=== PATIENT | male | born 1995 | race Caucasian/White ===

== ENCOUNTER 2018-03-02 13:49 | Emergency (ER) | payer OTHER, BC ==
[~2018-03-02] VITALS: Ht 167.6 cm; Wt 95.0 kg
[~2018-03-02 13:49] MED LIST: ADDE5XR
[2018-03-02 13:57] VITALS: BP 143/64; PULSE 102; RESP 20; TEMP 97.5; O2SAT 97
--- NOTE | 2018-03-02 16:39 | RADRPT ---
EXAM DATE: 03/02/2018 4:13 PM EDT AGE/SEX: 22 years / Male INDICATIONS: Pain from fall backwards onto hand, fourth metatarsal region. CLINICAL DATA: This is the patient's initial encounter. Patient reports that signs and symptoms have been present for 1 day and indicates a pain score of 5/10. MEDICAL/SURGICAL HISTORY: None. None. COMPARISON: No prior exams available for comparison. FINDINGS: There is a mildly angulated fracture of the distal fifth metacarpal. No dislocation. Also a mildly di splaced fracture proximal fifth metacarpal at the carpometacarpal joint. CONCLUSION: Mildly displaced fractures of the proximal and distal right fifth metacarpal. Electronically signed by: David Elias MD 03/02/2018 4:38 PM EDT
--- NOTE | 2018-03-02 16:55 | PD ---
HPI Chief Complaint: Injury Time Seen by Provider: 15:39 Travel History International Travel<30 days: No Contact w/Intl Traveler<30days: No Traveled to known affect area: No History of Present Illness HPI 22-year-old male presents emergency department with injury to the right hand. Patient was working out at the gym, when he fell off the treadmill backwards landing on his right hand that was balled and assist. This happened 3 days ago. He continues to have pain and swelling to the right hand and difficulty making a fist. Pain is 7 out of 10. Patient denies numbness or tingling. Pain is localized to the right lateral hand. He has no pain to the wrist, elbow, or shoulder. He denies any other injury. He has no known drug allergies. PFSH Past Medical History ADHD: Yes Diminished Hearing: No Immunizations Current: Yes Past Surgical History Tympanostomy Tube: Yes Social History Alcohol Use: No Tobacco Use: No Substance Use: No Allergies-Medications (Allergen,Severity, Reaction): Coded Allergies: No Known Allergies (Verified , 01/26/10) Reported Meds & Prescriptions Reported Meds & Active Scripts Active Reported Adderall Xr (Amphetamine/Dextroamphetamine) 5 Mg Cap 0 UNKNOWN DOSE Review of Systems Except as stated in HPI: all other systems reviewed are Neg General / Constitutional: No: Fever Eyes: No: Visual changes HENT: No: Headaches Cardiovascular: No: Chest Pain or Discomfort Respiratory: No: Shortness of Breath Gastrointestinal: No: Abdominal Pain Genitourinary: No: Dysuria Musculoskeletal: Positive: Arthralgias, Limited ROM, Pain Skin: No Rash Neurologic: No: Weakness Psychiatric: No: Depression Endocrine: No: Polydipsia Hematologic/Lymphatic: No: Easy Bruising Physical Exam Narrative GENERAL: Patient appears in mild distress. SKIN: Warm and dry. Normal color. Normal turgor. Patient has bruising to the dorsal right hand. This area is swollen as well. HEAD: Atraumatic. Normocephalic. EYES: Pupils equal and round. No scleral icterus. No injection or drainage. ENT: No nasal bleeding or discharge. Mucous membranes pink and moist. NECK: Trachea midline. No JVD. CARDIOVASCULAR: Regular rate and rhythm. RESPIRATORY: No accessory muscle use. Clear to auscultation. Breath sounds equal bilaterally. GASTROINTESTINAL: Abdomen soft, non-tender, nondistended. Hepatic and splenic margins not palpable. MUSCULOSKELETAL: Extremities without clubbing, cyanosis, or edema. No obvious deformities. Patient has no shortening of the fingers or knuckles. He has swelling and tenderness over the dorsal lateral right hand consistent with distal metacarpal fracture. 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 Right wrist is unremarkable. Rest of exam is unremarkable. NEUROLOGICAL: Awake and alert. No obvious cranial nerve deficits. Motor grossly within normal limits. Five out of 5 muscle strength in the arms and legs. Normal speech. PSYCHIATRIC: Appropriate mood and affect; insight and judgment normal. Data Data Last Documented VS Vital Signs Date Time Temp Pulse Resp B/P (MAP) Pulse Ox O2 Delivery O2 Flow Rate FiO2 03/02/18 13:57 97.5 102 20 143/64 (90) 97 Orders Orders Hand, Complete ([id number]) (03/02/18 15:41) Splinting (03/02/18 ) MDM Medical Decision Making Medical Screen Exam Complete: Yes Emergency Medical Condition: Yes Differential Diagnosis Accidental fall. Right hand contusion. Possible fracture Narrative Course X-rays of the right hand are obtained. Patient is noted to have a slightly angulated distal fifth metacarpal fracture. Patient will be placed in an ulnar gutter splint. The splint should remain in place at all times. Patient can take Tylenol as needed for pain Patient should ice the area frequently. Patient is to follow-up with Dr. Anaya in the next 1-2 weeks. Diagnosis Primary Impression: Fracture of metacarpal of right hand, closed Qualified Codes: S62.336A - Displaced fracture of neck of fifth metacarpal bone, right hand, initial encounter for closed fracture Referrals: Deena Anaya MD 2 weeks Patient Instructions: General Instructions Additional Instructions: Patient is noted to have a slightly angulated distal fifth metacarpal fracture. Patient will be placed in an ulnar gutter splint. The splint should remain in place at all times. Patient can take Tylenol as needed for pain Patient should ice the area frequently. Patient is to follow-up with Dr. Anaya in the next 1-2 weeks. Med/Other Pt SpecificInfo: No Meds Exist/No RX given Disposition: 01 DISCHARGE HOME Condition: Stable Charlie Vaz Mar 02, 2018 16:55
== END 2018-03-02 17:17 | disposition home or self-care (01) ==
LOC: NEPD 13:49
DX: S62.336A Displaced fracture of neck of fifth metacarpal bone, right hand, initial encounter for closed fracture (principal); F90.9 Attention-deficit hyperactivity disorder, unspecified type; W10.2XXA Fall (on)(from) incline, initial encounter; Y93.A1 Activity, exercise machines primarily for cardiorespiratory conditioning; Y92.39 Other specified sports and athletic area as the place of occurrence of the external cause
CPT/HCPCS: 29125; 73130